=== PATIENT | male | born 1975 | race African-American/Black ===

== ENCOUNTER 2017-04-13 23:30 | Emergency (ER) | payer SELFPAY ==
[~2017-04-13] VITALS: Ht 190.5 cm; Wt 145.1 kg
--- NOTE | 2017-04-13 23:52 | Emergency Room Report ---
History of Present Illness General Chief Complaint: Male Urogenital Problems Source: Patient Present Illness HPI This is a 42-year-old male with no past medical history. He see her with his significant other for STD check. He said his been having a yellowish discharge last 3 days. No nausea no vomiting. No fever or chills. No other complaint. Denies any other symptoms. Allergies: Coded Allergies: No Known Allergies (Unverified , 04/13/17) Patient History Past Medical History: see triage record, old chart reviewed Past Surgical History: none Pertinent Family History: none Social History: Denies: smoking Immunizations: other Reviewed Nursing Documentation: PMH: Agreed, PSxH: Agreed Nursing Documentation-PMH Hx Asthma: Yes Review of Systems Eye: Denies: eye pain, blurred vision ENT: Denies: ear pain, nose congestion, throat swelling Respiratory: Denies: cough, shortness of breath Cardiovascular: Denies: chest pain, palpitations Gastrointestinal: Denies: abdominal pain, diarrhea, nausea, vomiting Genitourinary: Reports: discharge Musculoskeletal: Denies: back pain, joint pain Skin: Denies: rash Neurological: Denies: headache, numbness Endocrine: Denies: increased thirst, increased urine Hematologic/Lymphatic: Denies: easy bruising All Other Systems: negative except mentioned in HPI Physical Exam Vital Signs Date Time Temp Pulse Resp B/P (MAP) Pulse Ox O2 Delivery O2 Flow Rate FiO2 04/13/17 23:40 98.4 74 18 119/79 99 Room Air vitals normal Sp02 EP Interpretation: reviewed, normal General Appearance: well appearing, no apparent distress, alert Head: normocephalic, atraumatic Eyes: bilateral eye PERRL, bilateral eye EOMI ENT: hearing grossly normal, normal pharynx Neck: full range of motion, supple, no meningismus Respiratory: chest non-tender, lungs clear, normal breath sounds Cardiovascular #1: regular rate, rhythm, no murmur Gastrointestinal: normal bowel sounds, non tender, no mass, no organomegaly, no bruit, non-distended Genitourinary: penis normal, scrotum normal Musculoskeletal: back normal, gait/station normal, normal range of motion Psychiatric: mood/affect normal Skin: warm/dry Medical Decision Making Diagnostic Impression: Primary Impression: Urethritis ER Course Patient with a penile discharge that is most likely gonorrhea. We'll cover for chlamydia also. No evidence of deep infection. No systemic spread. We'll discharge from the Last Vital Signs Date Time Temp Pulse Resp B/P (MAP) Pulse Ox O2 Delivery O2 Flow Rate FiO2 04/13/17 23:40 98.4 74 18 119/79 99 Room Air Status: unchanged Disposition: HOME, SELF-CARE Condition: Stable Patient Instructions: Urethritis, Adult Additional Instructions: Followup with your Dr. in 7 days. Recommend outpatient testing for HIV, hepatitis, syphilis and other STDs. Return if worse. JOSE YU M.D. Apr 13, 2017 23:52
[2017-04-13 23:55] VITALS: BP 119/79
[2017-04-14] MEDS ORDERED: Lidocaine 1% MPF 10mg/ml 5ml INJ ONE
[2017-04-14] MEDS ORDERED: Azithromycin 250mg tab ORAL ONE
[2017-04-14 00:17] VITALS: BP 119/79
== END 2017-04-14 00:17 | disposition home or self-care (01) ==
LOC: EMR 23:52
DX: N34.2 Other urethritis (principal); J45.909 Unspecified asthma, uncomplicated
CPT/HCPCS: 96372; 99283; J0696